=== PATIENT | female | born 1960 | race Two or more races ===

== ENCOUNTER 2017-09-05 11:30 | Inpatient (IN) | payer OTHER ==
[~2017-09-05] VITALS: Ht 152.4 cm; Wt 83.6 kg
[2017-09-05] MEDS ORDERED: SYNTHROID100 MCG (14:15)
[2017-09-05] MEDS ORDERED: AVAPRO300 MG (14:15)
[2017-09-05] MEDS ORDERED: ETODOLAC500 MG (14:16)
[2017-09-05] MEDS ORDERED: CYCLOBENZAPRINE10 MG (14:16)
[2017-09-05] MEDS ORDERED: HYDROCHLOROTHIA25 MG (14:16)
[2017-09-05] MEDS ORDERED: GABAPENTIN800 MG (14:16)
[2017-09-05] MEDS ORDERED: PHENOBARBITAL32.4 MG (14:17)
[2017-09-05] MEDS ORDERED: KETOTIFEN FUMARA (14:17)
[2017-09-05] MEDS ORDERED: RESTORIL15 MG (14:17)
[2017-09-14] MEDS ORDERED: GABAPENTIN800 MG PO (13:55)
[2017-09-14] MEDS ORDERED: DOCUSATE SODIU100 MG PO (13:55)
[2017-09-14] MEDS ORDERED: AMOX-CLAV 875-1 EACH PO (13:56)
[2017-09-14] MEDS ORDERED: PERCOCET 5-3251 EACH PO (13:57)
[2017-09-14] MEDS ORDERED: CLONAZEPAM1 MG PO (13:57)
== END 2017-09-14 16:10 | disposition home or self-care (01) | DRG 455 ==
LOC: PED 09-13 04:29 → O/R 09-13 04:29 → RECOVERY 09-13 11:30 → PED 09-13 11:46 → RECOVERY 09-13 12:00 → PED 09-13 15:53 → RECOVERY 09-16 11:30
PROVIDERS: Orthopaedic Surgery Orthopaedic Surgery of the Spine
PROC: 0SG0071 Fusion of Lumbar Vertebral Joint with Autologous Tissue Substitute, Posterior Approach, Posterior Column, Open Approach (ICD-10-PCS; 2017-09-13)
PROC: 0ST20ZZ Resection of Lumbar Vertebral Disc, Open Approach (ICD-10-PCS; 2017-09-13)
PROC: 0SG00AJ Fusion of Lumbar Vertebral Joint with Interbody Fusion Device, Posterior Approach, Anterior Column, Open Approach (ICD-10-PCS; 2017-09-13)
PROC: 07DS3ZZ Extraction of Vertebral Bone Marrow, Percutaneous Approach (ICD-10-PCS; 2017-09-13)
PROC: 0SG00A0 Fusion of Lumbar Vertebral Joint with Interbody Fusion Device, Anterior Approach, Anterior Column, Open Approach (ICD-10-PCS; principal; 2017-09-13 12:00)
DX: M47.26 Other spondylosis with radiculopathy, lumbar region (principal); M51.16 Intervertebral disc disorders with radiculopathy, lumbar region; M41.56 Other secondary scoliosis, lumbar region; I10 Essential (primary) hypertension; E03.8 Other specified hypothyroidism